=== PATIENT | female | born 1980 | race Caucasian/White ===

== ENCOUNTER 2016-04-08 07:29 | Emergency (ER) | payer OTHER ==
[~2016-04-08] VITALS: Ht 157.5 cm; Wt 80.0 kg
[~2016-04-08 07:29] MED LIST: ALBU8I INH; TYLE3 PO
[2016-04-08 07:30] VITALS: BP 117/73; PULSE 81; RESP 14; TEMP 97.9; O2SAT 97
--- NOTE | 2016-04-08 07:46 | PD ---
HPI Chief Complaint: ENT Complaint Time Seen by Provider: 07:46 Travel History International Travel<30 days: No Contact w/Intl Traveler<30days: No Traveled to known affect area: No History of Present Illness HPI 35-year-old female presents to the emergency department for evaluation of right ear pain for 2 weeks. Patient states that after she had had right ear pain for a week and developed left ear pain and a productive cough she was seen at [facility] 6 days ago and diagnosed with otitis media and pneumonia. States that she was started on Levaquin, Augmentin and Tessalon Perles. States that she has been taking these antibiotics as prescribed and her symptoms have greatly improved. States that her cough has resolved and she no longer has any pain in her left ear. States that the pain and fullness sensation in her right ear has improved but that it has persisted and this concerned her which is what prompted her to come in today. States that she wanted to make sure that her right ear was getting better. She is not taking anything for pain. Denies fever, chills, nausea, vomiting, lightheadedness, dizziness, hearing loss. Denies . No other complaints. 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 Menopausal: No Past Surgical History Narrative Surgical Splenectomy Social History Alcohol Use: Yes (rare) Tobacco Use: No Allergies-Medications (Allergen,Severity, Reaction): Coded Allergies: Aspirin (Verified Allergy, Severe, GOES INTO COMA, 04/08/16) Sulfa (Verified Allergy, Severe, Nausea/Vomiting, 04/08/16) Reported Meds & Prescriptions Reported Meds & Active Scripts Active Ventolin Hfa (Albuterol Sulfate) 8 Gm Aero 1 Puff INH Q4 PRN * SHAKE WELL BEFORE USE * Tylenol #3 (Acetaminophen/Codeine Phosphate) Acetaminophen 300/30 Codeine Tab 1 Tab PO QID PRN FOR PAIN Review of Systems Except as stated in HPI: all other systems reviewed are Neg Physical Exam Narrative GENERAL: Well-nourished and well-developed pleasant female patient in no acute distress who is nontoxic appearing. SKIN: Warm and dry. HEAD: Normocephalic and atraumatic. EYES: No injection, drainage, or hyphema noted. PERRLA. EOMI. ENT: No nasal drainage noted. Oropharynx is clear and the TMs are normal with good landmarks. NECK: Supple and the trachea is midline. No lymphadenopathy is noted throughout the cervical chains. CARDIOVASCULAR: Regular rate and rhythm. RESPIRATORY: Breath sounds are equal bilaterally with no accessory muscle use, wheezing, rhonchi, or crackles. NEUROLOGICAL: Awake, alert, and oriented. Normal speech and gait. Cranial nerves are grossly intact. Data Data Last Documented VS Vital Signs Date Time Temp Pulse Resp B/P Pulse Ox O2 Delivery O2 Flow Rate FiO2 04/08/16 07:30 97.9 81 14 117/73 97 MDM Medical Screen Exam Complete: Yes Emergency Medical Condition: No Differential Diagnosis Ear pain versus URI versus otitis media Narrative Course 35-year-old female presents to the emergency department for evaluation of right ear pain and fullness. Patient is afebrile, vital signs are stable. She was diagnosed with otitis media and pneumonia one week ago at [facility] and started on Levaquin and Augmentin. Reports great improvement of symptoms overall but with persistent right ear pain and fullness. Physical examination is essentially unremarkable. The patient's tympanic membranes are within normal limits with no evidence of perforation. Patient appears very well overall. There is no urgent or emergent intervention necessary at this time. Discussed supportive care and when to return to the emergency Department. Advised follow-up with her PCP. A medical screening exam was performed: At the time of evaluation the presenting medical condition was determined not to be of an emergent nature. Patient was given options for additional community resources from which to obtain care. The Patient Has Been advised to seek medical attention for their presenting complaint. The patient has been advised to return to the ER at any time if an emergent condition develops. Primary Impression: Encounter for medical screening examination Additional Impression: Right ear pain Disposition: EDGO-ED USE ONLY Condition: Stable Carolyne Moore Apr 08, 2016 07:46
== END 2016-04-08 08:04 | disposition left against medical advice (07) ==
LOC: NEPB 07:29
DX: H92.01 Otalgia, right ear (principal)
CPT/HCPCS: 99281

== ENCOUNTER 2016-07-01 11:23 | Emergency (ER) | payer OTHER ==
[~2016-07-01] VITALS: Ht 160 cm; Wt 85.0 kg
[2016-07-01 11:25] VITALS: BP 138/74; PULSE 108; RESP 20; TEMP 98.2; O2SAT 98
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
[2016-07-01] MEDS ORDERED: IBUPROFEN 800 MG TAB PO ONE (11:45)
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
[2016-07-01] MEDS ORDERED: ROBA500T PO (12:41)
[2016-07-01] MEDS ORDERED: IBUP800T23 PO (12:41)
== END 2016-07-01 13:18 | disposition home or self-care (01) ==
LOC: NEPK 11:23
DX: S49.92XA Unspecified injury of left shoulder and upper arm, initial encounter (principal); V49.9XXA Car occupant (driver) (passenger) injured in unspecified traffic accident, initial encounter; Y93.9 Activity, unspecified; Y92.410 Unspecified street and highway as the place of occurrence of the external cause
CPT/HCPCS: 73030; 99284

== ENCOUNTER 2017-05-12 10:44 | Emergency (ER) | payer OTHER ==
[~2017-05-12 10:44] MED LIST changes: -ALBU8I INH; +IBUP1TAB7 PO; +ROBA500T PO; -TYLE3 PO
[2017-05-12 11:15] VITALS: BP 138/90; PULSE 99; RESP 18; TEMP 99; O2SAT 100
[2017-05-12] MEDS ORDERED: ZITHTAB PO (11:34)
--- NOTE | 2017-05-12 11:39 | PD ---
HPI Chief Complaint: Cold / Flu Symptoms Time Seen by Provider: 11:20 Travel History International Travel<30 days: No Contact w/Intl Traveler<30days: No Traveled to known affect area: No History of Present Illness HPI Patient comes to the emergency department complaining of sore throat that began 4 days ago. Patient reports associated fever of 101 at home. Patient since has developed associated congestion, cough, and right ear pain. Patient reports ear pain got worse today prompting her come to the emergency department. Patient states try to get with the primary care doctor, but was not able to get an appointment for 2 months. Patient reports taking over-the- counter Tylenol and Mucinex for symptomatic relief. Patient reports son at home with "common cold." Denies any other known sick contacts. Patient reports history of splenectomy secondary to ITP and was told she is immune to penicillin secondary to having been on it for several years. Denies any nausea , vomiting, chest pain, shortness of breath, loss change in bowel or bladder, abdominal pain, neck pain, or headache. PFSH Past Medical History Diminished Hearing: No Headaches: Yes Respiratory: Yes (URI, PNEUMONIA) Migraines: Yes ?: Not LMP: 04/19/17 Menopausal: No : 0 Para: 0 Miscarriage: 0 Past Surgical History Abdominal Surgery: Yes (SPLEENECTOMY 1987 > ITP) Other Surgery: Yes (SPLEEN 1987/KNEE SURGERY 1996.) Social History Alcohol Use: Yes (rare) Tobacco Use: No Substance Use: No Allergies-Medications (Allergen,Severity, Reaction): Coded Allergies: Sulfa (Sulfonamide Antibiotics) (Unverified Allergy, Severe, Nausea/ Vomiting, 05/12/17) aspirin (Unverified Allergy, Severe, GOES INTO COMA, 05/12/17) Reported Meds & Prescriptions Reported Meds & Active Scripts Active Zithromax Z-Ruben (Azithromycin) 250 Mg Dspk 250 Mg PO DIRECTED 500 MG (2 tabs) day 1, then 1 tab days 2-5. Review of Systems Except as stated in HPI: all other systems reviewed are Neg Physical Exam Narrative GENERAL: Well-developed, overly nourished, in no acute distress, and non-ill appearing. SKIN: Focused skin assessment warm and dry. HEAD: Atraumatic. Normocephalic. EYES: Pupils equal and round. EOMI. No scleral icterus. No injection or drainage. ENT: No nasal bleeding or discharge. Mucous membranes pink and moist. Tympanic membranes pearly howard bilaterally. Posterior pharynx mild erythematous without exudate. Uvula is midline. No tenderness to facial sinuses to palpation. Patient swallowing wound saliva and speaking in full sentences without difficulty. NECK: Trachea midline. Mild cervical lymphadenopathy noted. Supple. No nuclear rigidity. CARDIOVASCULAR: Regular rate and rhythm. No murmur appreciated. RESPIRATORY: No accessory muscle use. No respiratory distress. Clear to auscultation. Breath sounds equal bilaterally. Dry cough noted on exam. MUSCULOSKELETAL: No obvious deformities. No clubbing. No cyanosis. No edema. Full range of motion. NEUROLOGICAL: Awake and alert. No obvious cranial nerve deficits. Motor grossly within normal limits. Normal speech. PSYCHIATRIC: Appropriate mood and affect; insight and judgment normal. Data Data Last Documented VS Vital Signs Date Time Temp Pulse Resp B/P (MAP) Pulse Ox O2 Delivery O2 Flow Rate FiO2 05/12/17 11:15 99.0 99 18 138/90 (106) 100 Orders Orders Ed Discharge Order (05/12/17 11:40) [facility] Medical Decision Making Medical Screen Exam Complete: Yes Emergency Medical Condition: Yes Differential Diagnosis Viral pharyngitis, strep pharyngitis, influenza, URI, allergies, sinusitis, otitis media, otitis externa, otalgia Narrative Course Patient looks great, non-ill appearing. The patient is tolerating fluids and is well hydrated. Appears pharyngitis possibly Strep. No clinical evidence by history or evaluation to suspect meningitis and/or sepsis. There was no evidence to suggest peritonsillar abscess or retropharyngeal abscess. I discussed with the patient, diagnosis, plan of care and to follow up with the patients primary physician. The patient was given antibiotics. The patient was instructed to return if the worsens in anyway, especially if not tolerating fluids, increased pain or swelling, difficulty swallowing or breathing, or as needed. The patient agreed with plan. Patient in no obvious distress upon re-evaluation. Patient was asked if they wanted to speak to my attending, which the patient did not wish to do at this time. Any questions/concerns in reference to patient diagnosis/condition discussed and clarified prior to patient's discharge. Reinforced sheer importance of close follow up with patient's primary physician or primary care clinic. Instructed patient to return to ED immediately, if symptoms return/ worsen. Patient showed understanding of above instructions. Further instructions and recommendations were detailed in discharge paperwork. Patient ambulated without difficulty out of ED at discharge. Diagnosis Primary Impression: Pharyngitis Qualified Codes: J02.9 - Acute pharyngitis, unspecified Referrals: [facility] Patient Instructions: General Instructions, Pharyngitis (ED) Additional Instructions: Follow-up with your primary care physician and/or ENT in 3-5 days for reevaluation. Take all medication as prescribed. Continue using over-the- counter Tylenol and ibuprofen as needed for pain and fever control. Follow instructions on the packaging. Drink plenty of non-caffeinated and nonalcoholic fluids. Return to the emergency department if symptoms get worse. Med/Other Pt SpecificInfo: Prescription(s) given Scripts Azithromycin (Zithromax Z-Ruben) 250 Mg Dspk 250 MG PO DIRECTED for Infection, #1 DSPK 0 Refills 500 MG (2 tabs) day 1, then 1 tab days 2-5. Prov: Bandar Lerma MD 05/12/17 Disposition: 01 DISCHARGE HOME Condition: Stable [place] May 12, 2017 11:39
== END 2017-05-12 12:00 | disposition home or self-care (01) ==
LOC: NEPK 10:44
DX: J02.9 Acute pharyngitis, unspecified (principal); Z88.2 Allergy status to sulfonamides; Z88.8 Allergy status to other drugs, medicaments and biological substances
CPT/HCPCS: 99283